=== PATIENT | male | born 2000 | race Caucasian/White ===

== ENCOUNTER 2021-06-05 12:31 | Emergency (ER) | payer OTHER ==
[2021-06-05 14:48] LABS: HEMOGLOBIN 14.3 gm/dl (14.0-17.5); RED BLOOD COUNT 5.16 M/UL (4.20-5.50); WHITE BLOOD COUNT 3.9 K/UL (4.5-11.0)
[2021-06-05] MEDS ORDERED: BACTRIM DS TAB1 EACH PO (15:11)
[2021-06-05 15:15] LABS: BUN/CREATININE RATIO 8 (0-10)
== END 2021-06-05 16:00 | disposition home or self-care (01) ==
LOC: ER1 12:31
DX: L73.2 Hidradenitis suppurativa (principal); F17.290 Nicotine dependence, other tobacco product, uncomplicated; Z91.013 Allergy to seafood; Z88.8 Allergy status to other drugs, medicaments and biological substances
CPT/HCPCS: 80053; 85025; 99283